=== PATIENT | female | born 1930 | race Caucasian/White ===

== ENCOUNTER 2017-01-21 17:24 | Emergency (ER) | payer MEDICARE, OTHER ==
[~2017-01-21] VITALS: Ht 152.4 cm; Wt 62.7 kg
[2017-01-21 17:25] VITALS: BP 155/96; PULSE 97; RESP 24; O2SAT 94
[2017-01-21] MEDS ORDERED: Albuterol-Ipratropium 3 mL Inhalation Solution NEB ONE (17:45)
--- NOTE | 2017-01-21 17:53 | ED.REPORT ---
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 Associated symptoms include wheezing and chest "tightness," without radiation. The patient denies diaphoresis, nausea, fever, cough, extremity swelling, or other symptoms. Her breathing has improved since onset but has not resolved in the ED. The patient had a similar episode of symptoms six days ago, although less severe. She denies recent changes in her medication or problems with exertion over the past week. The patient was sent from the [facility]. Nursing Notes Stated Complaint: SHORTNESS OF BREATH Chief Complaint: Respiratory Distress Nursing Notes Reviewed: Yes ([employer] not reconciled) Allergies: Coded Allergies: No Known Allergies (Unverified , 01/21/17) Scheduled Furosemide (Furosemide) 20 Mg Tab 20 MG PO DAILY Potassium Chloride (Potassium Chloride) 10 Meq Capsule.er 10 MEQ PO DAILY TAKE WITH FOOD Sulfamethoxazole/Trimeth 800-160 mg (Bactrim DS) 1 Each Tablet 1 TABLET PO BID General Time Seen by MD: 17:28 Chief Complaint Shortness of breath Hx Obtained From: Patient Arrived By: Walk-in Sudden in Onset?: Yes Onset Occurred: Yesterday (Last Night) Symptom Duration: Since onset Location: : Chest left: Chest right Quality: Painful (Tightness) Severity: Current: Mild Severity: Maximum: Moderate Associated with: Reports: Chest pain, Wheeze Pertinent Negative: Relieved by nothing Context Related History: Reports: COPD Recent Healthcare: Recent doctor visit Similar Sx Previous: Yes Past Medical History Past Medical History Notes: Past Medical History Hypercholesterolemia History of mild COPD-not on any medication GERD History of anemia Past Surgical History Total hysterectomy Tonsillectomy Adenoidectomy Bunionectomy Smoking History Former Smoker (quit 2006) Social History Alcohol Use: Denies alcohol use Other Social History: Good social support Ambulatory Status Independent Review of Systems Review of Systems Note: Constitutional: Denies: Fever Respiratory: Reports: Shortness of breath, Wheezing, Denies: Non-productive cough Cardiovascular: Reports: Chest pain (Tightness) Musculoskeletal: Denies: Extremity swelling Skin: Denies Diaphoresis Complete sys rev & neg: except as marked. GI: Denies: Diarrhea, Nausea, Vomiting Physical Exam Initial Vital Signs Vital Signs (First) Date Time Temp Pulse Resp B/P Pulse Ox O2 Delivery O2 Flow Rate FiO2 01/21/17 17:25 36.2 97 24 155/96 94 Room Air Initial VS: Reviewed, Vital signs abnormal (trace tachypnea, not clinically apparent) Head / Eyes: Atraumatic, Normocephalic ENT: Conjunctiva normal, No scleral icterus Skin: Warm, Dry, No cyanosis Neurologic: Alert, Oriented, Nonfocal Psychiatric: Mood/affect normal, Behavior normal, Normal thought content General/Constitutional: Awake, Alert, Well appearing Neck: Supple, Full range of motion Respiratory / Chest: Breath sounds = bilat, No respiratory distress Mild shortness of breath Trace bronchospasm Cardiovascular: Heart rate NL, Regular rhythm, Heart sounds NL Lower Extremity / Pelvis / MS: Atraumatic, Inspection NL, No edema Interpretation & Diagnostics Lab Results Interpretation Result Diagram: 01/21/17 1750 01/21/17 1750 Test 01/21/17 17:50 01/21/17 18:49 White Blood Count 7.4th/mm3 (3.8-10.1) Red Blood Count 4.94mil/mm3 (3.90-5.20) Hemoglobin 15.3g/dL (12.0-15.6) Hematocrit 45.4% (35.0-46.0) Mean Corpuscular Volume 91.9fL (81-100) Mean Corpuscular Hemoglobin 31.0pg (27.0-35.0) Mean Corpuscular Hemoglobin Concent 33.7% (32.0-37.0) Red Cell Distribution Width 13.2% (12.3-15.4) Platelet Count 235bil/L (150-400) Neutrophils (%) (Auto) 69.5% (40-74) Lymphocytes (%) (Auto) 16.3% (14-46) Monocytes (%) (Auto) 11.2% (4-12) Eosinophils (%) (Auto) 2.0% (0-5) Basophils (%) (Auto) 0.7% (0-3) D-Dimer < 0.50mg/L FEU (<0.50) Sodium Level 140mEq/L (134-144) Potassium Level 3.9mEq/L (3.5-5.2) Chloride Level 103mEq/L (97-108) Carbon Dioxide Level 21mmol/L (18-29) Blood Urea Nitrogen 20mg/dL (8-27) Creatinine 0.79mg/dL (0.57-1.00) Estimat Glomerular Filtration Rate 99mL/min (>59) Glucose Level 92mg/dL (60-99) Lactic Acid Level 1.1mmol/L (0.4-2.0) Calcium Level 9.4mg/dL (8.5-10.1) Total Bilirubin 0.4mg/dL (0.0-1.2) Aspartate Amino Transf (AST/SGOT) 20U/L (0-50) Alanine Aminotransferase (ALT/SGPT) 15U/L (0-32) Alkaline Phosphatase 66U/L (25-165) Troponin T < 0.010ug/L (0.0-0.011) Pro-B-Type Natriuretic Peptide 4504pg/mL (0-738) Total Protein 7.5g/dL (6.4-8.4) Albumin 4.4g/dL (3.4-5.0) Urine Color Yellow (YELLOW) Urine Appearance Clear (CLEAR,HAZY) Urine pH 7.0 (5.0-8.0) Urine Specific [place] 1.010 (1.003-1.035) Urine Protein Negativemg/dL (NEG,TRACE) Urine Glucose (UA) Negativemg/dL (NEGATIVE) Urine Ketones Negativemg/dL (NEGATIVE) Urine Occult Blood Trace (NEGATIVE) Urine Nitrite Negative (NEGATIVE) Urine Bilirubin Negative (NEGATIVE) Urine Urobilinogen Normalmg/dL (NORMAL) Urine Leukocyte Esterase Moderate (NEGATIVE) Urine RBC 3-10/hpf (0-2) Urine WBC >50/hpf (0-5) Urine Epithelial Cells Few/hpf (NONE-MOD) Urine Crystals None seen (NONE SEEN) Urine Bacteria None/hpf (NONE-FEW) Urine Hyaline Casts None/lpf (NONE) Urine Granular Casts None seen (NONE SEEN) Urine Waxy Casts None seen (NONE SEEN) Urine Red Blood Cell Casts None seen (NONE SEEN) Urine White Blood Cell Casts None seen (NONE SEEN) Urine Mucus None seen (None Seen) Urine Trichomonas None seen (NONE SEEN) Urine Yeast None (NONE SEEN) Urinalysis Comment None Urine Culture Reflexed Indicated Lab Results Interpretation: CBC normal CMP normal Troponin negative (>20 hours after sx onset, arguing against ACS/NSTEMI) BNP elevated\\ UA w/markers of infection ECG Interpretation ECG Interpretation: Sinus rhythm rate 78 LVH Mild repolarization abnormalities No prior available for comparison Time: 18:02 Interpreted by: ED physician X-Ray Chest Interpretation Chest Xray Interpretation: IMPRESSION: No acute cardiopulmonary disease process. Dictated by: Belinda Sigala MD, PhD on 01/21/2017 at 17:57 View: Portable, 1 view Interpretation / Wet Read by: Interpret - Radiologist Re-Eval/Medical Decision Med Decision/Clinical Course This is a pleasant 86-year-old female presents with onset of shortness of breath last night and into today. She has no previous known cardiac disease. She carries a known diagnosis of COPD, quit smoking 10 years ago and reports she has never been on any medication for it. She denies fever or cough, leg swelling, weight gain or additional complaint. I am she appears well. She is a low-grade tachypnea, but is not visibly dyspneic. She has faint bronchospasm, but is mild. She has no JVD, no leg edema. She has no risk factors for pulmonary embolism. No acute ischemic changes are appreciated on EKG. Chest x-ray was negative. Blood work is notable for mild BNP elevation and a normal troponin. The patient given her history of CP was treated empirically with a dose of albuterol , as well as a single dose of Lasix 20 mg-complete resolution of symptoms. At this point the differentials between a mild COPD and a mild new onset of CHF. UA, she has normal vitals, symptoms resolved, she appears well. She has follow-up with her PCP on Tuesday. I have explained to the company family that I do not know which is the primary cause, so the plan is to discharge with an inhaler, a short course of some furosemide 20 mg once a day for 3 days-10 and have her stop the medicines, and weight her follow-up on Tuesday the see how she is doing. I have explained that I would write for full 30 day course of furosemide if symptoms recur, and would recommend that she continue it if they are mild. She has new or worsening symptoms she should return to the emergency department. Additionally she is given a prescription for a 3 day course of Bactrim for findings of UTI, is initially in review of symptoms she denied anything, but on pressing with the results of the urine she indicates she has had some increased frequency recently. Patient is discharged in good condition. Source of Hx: Old records Re-Evaluation/Progress : Time of Eval: 19:28 Patient Status: Condition improved Re-Evaluation/Progress Note: Patient is breathing well. Discussed with patient and her family lab and x-ray results, diagnosis, and plan for discharge. Follow-up and return to the ER instructions given. Patient agrees with plan for care and all questions were addressed. The patient now reports urinary frequency onset a couple of weeks ago. She denies dysuria or hematuria. Differential Diagnosis: Positive: COPD exacerbation, Congestive heart failure, Negative: Acute coronary syndrome, Airway obstruction, Carbon monoxide poisoning, Cardiogenic shock, Dysrhythmia, Exercise induced asthma, Inhalation injury, Myocardial infarction, Pericarditis, Pneumonia Counseled Regarding: Diagnosis, Lab results, Need for follow-up, When/why to return to ED Discharge & Departure Impression: Primary Impression: Shortness of breath Additional Impressions: COPD with acute exacerbation Elevated brain natriuretic peptide (BNP) level Urinary tract infection Urinary tract infection type: acute cystitis Hematuria presence: without hematuria Qualified Code: N30.00 - Acute cystitis without hematuria Disposition: Home Discharge Condition All VS Reviewed: Yes Condition: Improved Additional Instructions: 1. Your tests suggest either a mild episode of COPD exacerbation, or a mild episode of congestive heart failure. I do not see any congestive heart failure on your chest x-ray, but the possibly of heart failure is raised by a blood test called the BMP which is mildly elevated. Your tests were otherwise normal - except for urine which does demonstrate a urinary tract infection is probably causing your increased and frequent urination. 2. At this point the plan is to treat both mild COPD and mild congestive heart failure for a few days further, and then stop the medicines to see if you still need to take anything. 3. I recommend using the albuterol inhaler 2 puffs with a spacer 2-3 times a day for the next several days. 4. I would also take furosemide 20 mg once a day for the next 3 days. This is a water pill. We will be prescribing a full 30 day supply, in case you are still having a little bit of shortness of breath I would continue the medicine- but if you need to take it for more than 4-5 days, you should also take a potassium supplement 10 mg 1 vitamin once a day. 5. Keep your appointment next week with Lyssa Scruggs for recheck. 6. Return if any worsening symptoms. 7. For the urinary tract infection, take the antibiotic trimethoprim sulfa 1 tablet twice a day for 3 days starting tomorrow. Referrals: Laurence Scruggs PA-C (PCP) Russell Attestation Portions of this note were transcribed by Sabra Bingham. I, Dr. Diaz, personally performed the history, physical exam, and medical decision-making; I reviewed and confirmed the accuracy of the information in the transcribed note. Signed by: Russell Tan, 01/21/2017, 20:35 copies to: Laurence Scruggs PA-C, Matthew F MD Jan 21, 2017 17:53 SABRA BINGHAM Jan 21, 2017 18:52
[2017-01-21 17:56] LABS: BASOPHILS % (AUTO) 0.7 % (0-3); MONOCYTES % (AUTO) 11.2 % (4-12); Mean Corpuscular Volume 91.9 fL (81-100); NEUTROPHILS % (AUTO) 69.5 % (40-74); Platelet Count 235 bil/L (150-400)
--- NOTE | 2017-01-21 18:00 | DRSVH ---
PROCEDURE: X-RAY CHEST ONE VIEW, PORTABLE ([id number]) INDICATIONS: SOB TECHNIQUE: One view of the chest was acquired. COMPARISON: None. FINDINGS: Surgical changes and devices: None. Lungs and pleura: No pleural effusions or pneumothorax. Lungs are hyperinflated with flattened hemid iaphragms suggesting COPD. No acute lung opacities identified. Mediastinum: Mediastinal contours appear normal. Heart size is normal. Bones and chest wall: No suspicious bony lesions. Overlying soft tissues appear unremarkable. IMPRESSION: No acute cardiopulmonary disease process. Dictated by: Belinda Sigala MD, PhD on 01/21/2017 at 17:57 Approved by: Belinda Sigala MD, PhD on 01/21/2017 at 17:58
[2017-01-21 18:24] VITALS: PULSE 75; RESP 16; O2SAT 98
[2017-01-21 18:25] LABS: TROPONIN T < 0.010 ug/L (0.0-0.011)
[2017-01-21] MEDS ORDERED: Furosemide 10 mg/mL 2 mL Inj IVPUSH ONE (18:35)
[2017-01-21] MEDS ORDERED: Furosemide 10 mg/mL 4 mL Inj IVPUSH ONE (19:10)
[2017-01-21 19:19] VITALS: BP 145/81; PULSE 86; RESP 18; O2SAT 93
[2017-01-21 19:24] LABS: APPEARANCE,URINE CLEAR (CLEAR,HAZY); COLOR,URINE YELLOW (YELLOW); OCCULT BLOOD,URINE TRACE (NEGATIVE); UROBILINOGEN,URINE NORMAL (NORMAL)
[2017-01-21] MEDS ORDERED: Trimethoprim-Sulfa 160 mg-800 mg Tablet PO ONE (19:35)
[2017-01-21] MEDS ORDERED: Albuterol HFA 60 Puff 8 Gm Inhaler INHALATION ONE (19:35)
[2017-01-21] MEDS ORDERED: FUR20 PO (19:44)
[2017-01-21] MEDS ORDERED: SULF1TAB7 PO (19:44)
[2017-01-21] MEDS ORDERED: POTA10CA42 PO (19:44)
[2017-01-21] MEDS ORDERED: _Proair 200 Puff/8.5 GM Inhaler INHALATION PRN (19:50)
[2017-01-21 20:06] VITALS: BP 145/81; PULSE 86; RESP 18; O2SAT 93
== END 2017-01-21 20:23 | disposition home or self-care (01) ==
LOC: SED 17:24
DX: R06.02 Shortness of breath (principal); J44.1 Chronic obstructive pulmonary disease with (acute) exacerbation; N30.00 Acute cystitis without hematuria; R79.89 Other specified abnormal findings of blood chemistry; R07.89 Other chest pain; K21.9 Gastro-esophageal reflux disease without esophagitis; Z87.891 Personal history of nicotine dependence
CPT/HCPCS: 36415; 71010; 80053; 81000; 83605; 83880; 84484; 85025; 85378; 87086; 87088; 93005; 94640; 94664; 96374; 99285; J1940; J7620